=== PATIENT | male | born 1975 | race Asian ===

== ENCOUNTER 2021-09-29 17:14 | Emergency (ER) | payer OTHER ==
[~2021-09-29] VITALS: Ht 170.2 cm; Wt 61.2 kg
[2021-09-29 17:14] VITALS: BP 133/70; TEMP 98.8
[~2021-09-29 17:14] MED LIST: ACET-206 PO; BENZ1TAB43 PO; CHOL100034 PO; CLON0.1T16 PO; CLOZ100T PO; DIVA250T PO; DIVALPROEX250 M1 PO; DIVALPROEX500 M1 PO; DIVALPROEX500 MG PO; HALO50IN4 IM; HALO5INJ3 IM; HYDROXYZINE HYD25 MG PO; LACTSYP31 PO; LACTULOSE10 GM/15 M PO; LORA1TAB17 PO; MAGNSUS68 PO; SCOP1.5D TD; SEROQUEL XR150 MG PO; SEROQUEL300 MG PO; SEROQUEL50 MG PO; TYLENOL325 MG PO; VITAMIN D31000 UNI4 PO; ZIPR80CA PO
[2021-09-29 17:44] LABS: PLATELET COUNT 211 K/uL (142-355)
[2021-09-29 18:07] LABS: POTASSIUM 3.7 mmol/L (3.6-5.2)
[2021-09-30] MEDS ORDERED: DIVA500T2 PO (01:38)
[2021-09-30] MEDS ORDERED: ATROPINE SUL1 % SL (01:41)
[2021-09-30] MEDS ORDERED: LACTSYP31 PO (01:46)
== END 2021-09-29 18:07 | disposition still patient (30) ==
LOC: ED 17:14
PROVIDERS: Emergency Medicine Emergency Medical Services
DX: F25.8 Other schizoaffective disorders (principal); R46.89 Other symptoms and signs involving appearance and behavior; Z11.52 Encounter for screening for COVID-19; Z04.6 Encounter for general psychiatric examination, requested by authority
CPT/HCPCS: 80053; 81000; 85027; 87635; 93005; 99283; U0003